=== PATIENT | female | born 1950 | race Caucasian/White ===

== ENCOUNTER → 2023-07-23 09:29 | Outpatient (REF) | payer MEDICARE, SELFPAY ==
[2023-07-23 10:17] LABS: Hematocrit 38.6 % (37.0-47.0); Hemoglobin 13.4 g/dL (12.0-16.0); Mean Corp Hgb Conc. 34.7 g/dL (33.0-37.0); Mean Corpuscular Hgb 31.4 pg (27.0-31.0); Mean Corpuscular Volume 90.4 fL (81.0-99.0); Mean Platelet Volume 9.3 fL (7.4-10.4); Platelet Count 294 10^3/uL (130-400); Red Blood Cell Count 4.27 10^6/uL (4.20-5.40); Red Cell Dist. Width 12.2 % (11.5-14.5); White Blood Cell Count 6.3 10^3/uL (4.8-10.8)
== END ==
LOC: SDSPAT 09:29
PROVIDERS: ATTENDING PHYSICIAN Orthopaedic Surgery Hand Surgery; FAMILY PHYSICIAN Family Medicine
DX: Z01.818 Encounter for other preprocedural examination (principal)
CPT/HCPCS: 36415; 85027

== ENCOUNTER 2023-08-05 06:20 | Day surgery (SDC) | payer MEDICARE, OTHER, SELFPAY ==
[2023-07-23 13:30] VITALS: BMI 36.1
[2023-08-05] VITALS (13 sets, daily range): BP systolic 126–136; BP diastolic 55–82; BMI 36.1
[2023-08-05] MEDS: NORMOSOL-R 1000 IV (12:05)
[2023-08-05] MEDS: TYLENOL 1000 MG PO (12:05)
[2023-08-05] MEDS: DILAUDID 0.25 MG IV ×4 (14:47→15:30)
== END 2023-08-05 17:18 | disposition home or self-care (01) ==
LOC: SDS 06:20
PROVIDERS: ATTENDING PHYSICIAN Orthopaedic Surgery Hand Surgery
DX: M18.11 Unilateral primary osteoarthritis of first carpometacarpal joint, right hand (principal)
CPT/HCPCS: 25447; C1713

== ENCOUNTER → 2024-05-17 10:49 | Outpatient (REF) | payer MEDICARE, SELFPAY | LOC: HWRAD 10:49 | PROVIDERS: ATTENDING PHYSICIAN Family Medicine | DX: M85.80 Other specified disorders of bone density and structure, unspecified site (principal) | CPT/HCPCS: 77080 ==

== ENCOUNTER → 2024-08-02 10:54 | Outpatient (REF) | payer MEDICARE, SELFPAY | LOC: HWRAD 10:54 | PROVIDERS: ATTENDING PHYSICIAN Physician Assistant; FAMILY PHYSICIAN Family Medicine | DX: J98.4 Other disorders of lung (principal) | CPT/HCPCS: 71250 ==

== ENCOUNTER → 2024-09-02 12:59 | Outpatient (REF) | payer MEDICARE, SELFPAY | LOC: PAVMRI 12:59 | PROVIDERS: ATTENDING PHYSICIAN Physician Assistant; FAMILY PHYSICIAN Family Medicine | DX: K76.9 Liver disease, unspecified (principal) | CPT/HCPCS: 74183; A9575 ==